=== PATIENT | female | born 1980 | race Caucasian/White ===

== ENCOUNTER 2018-04-18 09:36 | Emergency (ER) | payer OTHER ==
[~2018-04-18] VITALS: Ht 165.1 cm; Wt 65.8 kg
== END 2018-04-18 17:11 | disposition home or self-care (01) ==
LOC: ER 09:36
DX: A08.8 Other specified intestinal infections (principal)

== ENCOUNTER 2019-04-17 12:28 | Outpatient (CLI) | payer OTHER | END 2019-04-17 12:41 | disposition home or self-care (01) | LOC: LAB 12:28 | DX: Z34.82 Encounter for supervision of other normal pregnancy, second trimester (principal) ==

== ENCOUNTER 2019-05-14 11:52 | Outpatient (CLI) | payer OTHER | END 2019-05-14 12:32 | disposition home or self-care (01) | LOC: NST 11:52 | DX: O32.1XX0 Maternal care for breech presentation, not applicable or unspecified (principal); Z3A.33 33 weeks gestation of pregnancy ==

== ENCOUNTER 2019-06-25 04:23 | Inpatient (IN) | payer OTHER ==
[~2019-06-25] VITALS: Ht 165.1 cm; Wt 91.6 kg
== END 2019-06-27 11:28 | DRG 807 ==
LOC: SURG-SUITE 04:23 → LDR 04:23 → SURG-SUITE 10:32 → OB/GYN 06-29 12:37
PROVIDERS: ADMIT Obstetrics & Gynecology Maternal & Fetal Medicine
PROC: 10E0XZZ Delivery of Products of Conception, External Approach (ICD-10-PCS; principal; 2019-06-25)
PROC: 4A1HXCZ Monitoring of Products of Conception, Cardiac Rate, External Approach (ICD-10-PCS; 2019-06-25)
PROC: 4A033R1 Measurement of Arterial Saturation, Peripheral, Percutaneous Approach (ICD-10-PCS; 2019-06-25)
DX: O80 Encounter for full-term uncomplicated delivery (principal); Z37.0 Single live birth; Z22.330 Carrier of Group B streptococcus; Z3A.39 39 weeks gestation of pregnancy

== ENCOUNTER → 2019-06-25 | Outpatient (CLI) | payer OTHER ==
[~2019-06-25] MED LIST: PRENATAL TABLE1 EAC1 PO
== END | disposition still patient (30) ==
LOC: OBS/DEL 02:29
DX: O47.1 False labor at or after 37 completed weeks of gestation (principal)

== ENCOUNTER 2020-05-07 10:00 | Outpatient (CLI) | payer OTHER | END 2020-05-07 15:50 | disposition home or self-care (01) | LOC: PPH VACUNA 10:00 | DX: Z23 Encounter for immunization (principal) ==

== ENCOUNTER 2020-07-28 13:03 | Outpatient (CLI) | payer OTHER | END 2020-07-28 18:00 | disposition home or self-care (01) | LOC: PPH VACUNA 13:03 | DX: Z23 Encounter for immunization (principal) ==

== ENCOUNTER 2024-09-11 10:00 | Inpatient (IN) | payer OTHER ==
[~2024-09-11] VITALS: Ht 152.4 cm; Wt 68.0 kg
[2024-09-11 11:10] VITALS: BP 98/67
[2024-09-11 11:12] VITALS: BP 115/68
[2024-09-11 13:13] LABS: INR 1.15; PARTIAL THROMBOPLASTIN TIME 28.5 SECONDS (22.0-34.0); PROTHROMBIN TIME 12.4 SECONDS (9.0-11.5)
[2024-09-18] MEDS ORDERED: POVIDONE-IODINE 118 ML BOTT TOP ONE (14:14)
[2024-09-18] MEDS ORDERED: CEFAZOLIN SODIUM 1,000 MG VIAL ONE (14:15)
[2024-09-18] MEDS ORDERED: CHLORHEXIDINE GLUCONATE 120 ML BOTTLE TOP ONE (14:15)
[2024-09-18] MEDS ORDERED: ONDANSETRON HCL 4 MG in 0.9 % SODIUM CHLORIDE 50 ML IV SCH (17:28)
[2024-09-18] MEDS ORDERED: MORPHINE SULFATE 4 MG/ML CARTRIDGE IV PRN (17:30)
[2024-09-18] MEDS ORDERED: MORPHINE SULFATE 4 MG/ML VIAL IV PRN (17:30)
[2024-09-18] MEDS ORDERED: MORPHINE SULFATE 4 MG/ML VIAL IV ONE ×2 (17:55→19:10)
[2024-09-18] MEDS ORDERED: KETOROLAC TROMETHAMINE 30 MG VIAL IV SCH (18:00)
[2024-09-18] MEDS ORDERED: KETOROLAC TROMETHAMINE 30 MG VIAL ONE (18:35)
[2024-09-18] MEDS ORDERED: ONDANSETRON HCL 2 MG/ML VIAL ONE (18:35)
[2024-09-18] MEDS ORDERED: KETOROLAC TROMETHAMINE 30 MG VIAL IV ONE (18:40)
[2024-09-18 19:52] VITALS: BP 115/68
[2024-09-18 20:00] VITALS: BP 110/60
[2024-09-19] VITALS: BP 100/53
[2024-09-19 06:09] LABS: HEMATOCRIT 32.1 % (36.0-45.00); HEMOGLOBIN 10.8 g/dL (12.0-15.00); MEAN CELL VOLUME 83.4 fL (80.00-100.00); MEAN CORPUSCULAR HGB CONC 33.6 g/dl (32.0-36.0); PLATELET COUNT 206 K/uL (150-450); RED BLOOD COUNT 3.85 M/uL (4.00-6.00); RED CELL DISTRIBUTION WIDTH 14.8 % (11.5-14.5)
[2024-09-19 06:35] LABS: ALBUMIN 3.1 gm/dL (3.4-5.0); BILIRUBIN TOTAL 0.64 mg/dL (0.3-1.2); CALCIUM 8.1 mg/dL (8.5-10.1); CREATININE SERUM 0.97 mg/dL (0.55-1.02); GFR 62.68; GLOBULINA 2.6 G/DL (2.4-3.5); POTASSIUM 4.14 mEq/L (3.5-5.1); TOTAL PROTEIN 5.7 gm/dL (6.4-8.2)
[2024-09-19 08:18] VITALS: BP 97/60
[2024-09-19] MEDS ORDERED: DOCUSATE CALCIUM 240 MG CAPSULE PO SCH (09:00)
[2024-09-19] MEDS ORDERED: KETOROLAC TROMETHAMINE 10 MG TABLET PO PRN (09:00)
[2024-09-19] MEDS ORDERED: GABAPENTIN 300 MG CAPSULE PO SCH (09:00)
[2024-09-19] MEDS ORDERED: DOCUSATE SODIUM 100MG CAP PO SCH (09:00)
[2024-09-19] MEDS ORDERED: OxyCODONE HCL 5 MG TABLET (ROXICODONE) PO SCH (12:00)
[2024-09-19] MEDS ORDERED: SIMETHICONE 125 MG CAPSULE PO SCH (13:00)
[2024-09-19 16:18] VITALS: BP 127/62
[2024-09-20] VITALS: BP 104/60
[2024-09-20 08:30] VITALS: BP 100/58
== END 2024-09-20 12:03 | disposition home or self-care (01) | DRG 743 ==
LOC: SURG 09-18 07:00 → O/R 09-18 07:16 → OB/GYN 09-18 07:16 → SURG 09-18 10:00 → OB/GYN 09-18 18:23
PROVIDERS: Obstetrics & Gynecology; ADMIT Obstetrics & Gynecology; ATTEND Obstetrics & Gynecology
PROC: 0UJD4ZZ Inspection of Uterus and Cervix, Percutaneous Endoscopic Approach (ICD-10-PCS; 2024-09-18)
PROC: 0UT70ZZ Resection of Bilateral Fallopian Tubes, Open Approach (ICD-10-PCS; 2024-09-18)
PROC: 0UT90ZZ Resection of Uterus, Open Approach (ICD-10-PCS; principal; 2024-09-18 07:00)
DX: D25.1 Intramural leiomyoma of uterus (principal); D25.2 Subserosal leiomyoma of uterus; D25.0 Submucous leiomyoma of uterus; N84.1 Polyp of cervix uteri; Z53.31 Laparoscopic surgical procedure converted to open procedure